=== PATIENT | male | born 1940 | race Caucasian/White ===

== ENCOUNTER 2017-08-04 05:56 | Outpatient (CLI) | payer OTHER, BC ==
[~2017-08-04] VITALS: Ht 165.1 cm; Wt 78.9 kg
[2017-08-04] MEDS ORDERED: PLAVIX 75 MG TA75 M1 PO (08:04)
[2017-08-04] MEDS ORDERED: ELIQUIS5 MG PO (08:04)
[2017-08-04] MEDS ORDERED: ZETIA10 MG PO (08:05)
[2017-08-04] MEDS ORDERED: FLONASE 0.05%50 MCG NASAL (08:06)
[2017-08-04] MEDS ORDERED: CARTIA XT180 M1 PO (08:06)
[2017-08-04] MEDS ORDERED: ADVAIR HFA 230M12 GM INH (08:06)
[2017-08-04] MEDS ORDERED: ATORVASTATIN CA40 MG PO (08:07)
[2017-08-04] MEDS ORDERED: SORINE 80 MG TA80 M1 PO (08:07)
[2017-08-04] MEDS ORDERED: PROTONIX40 M1 PO (08:07)
[2017-08-04] MEDS ORDERED: IPRATROPIU0.2 MG/1 M INH (08:07)
[2017-08-04] MEDS ORDERED: SPIRIVA INH (08:08)
[2017-08-04] MEDS ORDERED: DOXYCYCLINE 10100 MG PO (08:08)
[2017-08-04] MEDS ORDERED: MUCINEX600 MG PO (08:08)
[2017-08-04] MEDS ORDERED: NORCO 5-325 TA1 EACH PO (08:09)
[2017-08-04] MEDS ORDERED: DIFLUCAN100 MG PO (08:09)
[2017-08-04] MEDS ORDERED: PREDNISONE 10 M10 M1 PO (08:10)
[2017-08-04 08:15] VITALS: BP 123/69
[2017-08-04 08:41] LABS: HEMATOCRIT 42.7 % (42.0-52.0); MCH 27.8 pg (26.0-34.0); MCHC 32.8 g/dL (28.0-37.0); MCV 84.7 fL (80.0-100.0); RBC 5.03 mil/uL (4.50-6.00); RDW 18.4 % (10.5-14.5); WBC 9.2 thou/uL (4.0-11.0)
[2017-08-04 08:48] LABS: CALCIUM 9.5 mg/dL (8.5-10.1); CREATININE 0.9 mg/dL (0.7-1.3); POTASSIUM 4.1 mmol/L (3.5-5.1)
[2017-08-04 08:52] LABS: PROTIME 9.9 Seconds (9.3-11.4)
== END 2017-08-04 12:45 | disposition home or self-care (01) ==
LOC: OR 05:56 → SPEC 05:56 → TBA 05:56 → OR 05:57 → TBA 05:57 → SPEC 12:45 → EDSTATUS 08-06 05:56 → SPEC 08-06 08:38
PROVIDERS: Radiology Diagnostic Radiology
DX: M48.54XA Collapsed vertebra, not elsewhere classified, thoracic region, initial encounter for fracture (principal); M81.0 Age-related osteoporosis without current pathological fracture; I10 Essential (primary) hypertension; E78.5 Hyperlipidemia, unspecified; I48.2 Chronic atrial fibrillation; Z95.5 Presence of coronary angioplasty implant and graft; J44.9 Chronic obstructive pulmonary disease, unspecified; Z82.49 Family history of ischemic heart disease and other diseases of the circulatory system; K21.9 Gastro-esophageal reflux disease without esophagitis; E66.9 Obesity, unspecified
CPT/HCPCS: 62110; 62900; 70005